=== PATIENT | male | born 1955 | race Caucasian/White ===

== ENCOUNTER → 2016-05-16 | Outpatient (CLI) | payer BC ==
[~2016-05-16] MED LIST: AMR2 PO; ASCO10003 PO; ASPCH81 PO; ASPI1TAB2 PO; CHOL100010 PO; CHOL1CAP57 PO; COEN100C11 PO; COQ10100 PO; CRAN200C PO; DEXL30CA5 PO; FLM4 PO; GLC/500 PO; GLIM1TAB2 PO; KRIL1000 PO; KRIL1CAP18 PO; LOSA1TAB PO; METF1TAB85 PO; METH1TAB5 PO; METO50TA16 PO; METO50TA7 PO; MISCCAP80 PO; MULT-506 PO; NIAC500T11 PO; NXM/40 PO; OMEG10007 PO; OXGN; PRAV40TA2 PO; PRVC/40 PO; PRVC20 PO; SITA50TA PO; SITA50TA3 PO; TAMS0.4C38 PO; [UNRECOGNIZED DRUG - OTHER] PO
== END | disposition home or self-care (01) ==
LOC: C.LAB 14:19
PROVIDERS: ATTEND Urology
DX: N39.0 Urinary tract infection, site not specified (principal)

== ENCOUNTER 2016-08-21 08:48 | Emergency (ER) | payer BC ==
[~2016-08-21] VITALS: Ht 185.4 cm; Wt 114.4 kg
[2016-08-21] VITALS (8 sets, daily range): BP systolic 119–175; BP diastolic 71–81; PULSE 53–77; TEMP 36.4–36.8; O2SAT 92–98; Ht 185.4 cm; Wt 114.4 kg
[~2016-08-21 08:48] MED LIST changes: -AMR2 PO; -ASCO10003 PO; -ASPI1TAB2 PO; -CHOL1CAP57 PO; -COEN100C11 PO; -CRAN200C PO; -GLC/500 PO; -KRIL1000 PO; -KRIL1CAP18 PO; -LOSA1TAB PO; -METF1TAB85 PO; -METH1TAB5 PO; -METO50TA16 PO; -MISCCAP80 PO; -NIAC500T11 PO; -NXM/40 PO; -PRVC/40 PO; -PRVC20 PO; -SITA50TA3 PO; -TAMS0.4C38 PO; -[UNRECOGNIZED DRUG - OTHER] PO
[2016-08-21] MEDS ORDERED: SODIUM CHLORIDE 0.9% 1000ML 250 ML IV STA (09:33)
[2016-08-21] MEDS ORDERED: TAMS0.4C38 PO (09:48)
[2016-08-21] MEDS ORDERED: LOSA1TAB PO (09:48)
[2016-08-21] MEDS ORDERED: PRVC20 PO (09:48)
[2016-08-21] MEDS ORDERED: [UNRECOGNIZED DRUG - OTHER] PO (09:48)
[2016-08-21] MEDS ORDERED: DEXL30CA5 PO (09:48)
[2016-08-21] MEDS ORDERED: KRIL1CAP18 PO (09:48)
[2016-08-21] MEDS ORDERED: ASCO10003 PO (09:48)
[2016-08-21] MEDS ORDERED: COEN100C11 PO (09:48)
[2016-08-21] MEDS ORDERED: SITA50TA3 PO (09:48)
[2016-08-21] MEDS ORDERED: GLC/500 PO (09:48)
[2016-08-21] MEDS ORDERED: PRVC/40 PO (09:48)
[2016-08-21] MEDS ORDERED: AMR2 PO (09:48)
[2016-08-21] MEDS ORDERED: CHOL1CAP57 PO (09:48)
[2016-08-21] MEDS ORDERED: METH-1305 PO (09:48)
[2016-08-21] MEDS ORDERED: NIAC500T11 PO (09:48)
[2016-08-21] MEDS ORDERED: CRAN200C PO (09:48)
[2016-08-21] MEDS ORDERED: ASPI1TAB2 PO (09:48)
[2016-08-21] MEDS ORDERED: OXGN (09:48)
[2016-08-21] MEDS ORDERED: METO50TA16 PO (09:48)
[2016-08-21 09:49] LABS: HEMATOCRIT 40.7 % (42-52); MEAN CELL VOLUME 88.5 fL (80-100); MEAN CORPUSCULAR HEMOGLOBIN 30.2 pg (25-34); MEAN CORPUSCULAR HGB CONC 34.2 g/dl (32-36); MEAN PLATELET VOLUME 10.2 fL (7.4-10.4); PLATELET COUNT 206 K/uL (130-400); WHITE BLOOD COUNT 6.98 K/uL (4.8-10.8)
[2016-08-21 09:57] LABS: PARTIAL THROMBOPLASTIN RATIO 1.1
[2016-08-21 09:58] LABS: CALCIUM 8.6 mg/dl (8.5-10.1)
[2016-08-21 10:01] LABS: ALT/SGPT 36 U/L (12-78); BLOOD UREA NITROGEN 9 mg/dl (7-18); BUN/CREATININE RATIO 11.6 (10-20); CARBON DIOXIDE 27 mmol/L (21-32); CHLORIDE 103 mmol/L (98-107); CREATININE 0.79 mg/dl (0.60-1.40); GLUCOSE 175 mg/dl (70-99); POTASSIUM 3.8 mmol/L (3.5-5.1); SODIUM 138 mmol/L (136-145)
[2016-08-21 10:05] LABS: ALB/GLOB RATIO 0.9 (0.9-2); ALKALINE PHOSPHATASE 54 U/L (45-117); AST/SGOT 37 U/L (15-37)
--- NOTE | 2016-08-21 10:08 | DIAGNOSTIC IMAGING REPORT ---
CHEST ONE VIEW PORTABLE HISTORY: Atypical CHEST PAIN COMPARISON: Chest 09/30/2010. FINDINGS: The lungs are clear. Cardiac silhouette is normal in size. No pleural effusions. No pneumothorax. IMPRESSION: No acute process. Electronically signed by: Anderson Knight M.D. 08/21/2016 10:06 AM Dictated Date/Time: 08/21/2016 10:05 AM
[2016-08-21] MEDS ORDERED: NITROGLYCERIN 0.4 MG SL PER TAB CHARGE SL PRN (11:00)
[2016-08-21] MEDS ORDERED: ZOLPIDEM TARTRATE 5 MG TAB PO PRN ×2 (11:00)
[2016-08-21] MEDS ORDERED: MoRPHine SULFATE 2 MG/ML CARP IV PRN (11:00)
[2016-08-21] MEDS ORDERED: POLYETHYLENE (MIRALAX) 17 GM PACK PO PRN (11:00)
[2016-08-21] MEDS ORDERED: MAGNESIUM HYDROXIDE SUSP 30 ML UDC PO PRN (11:00)
[2016-08-21] MEDS ORDERED: ACETAMINOPHEN 325 MG TAB PO PRN (11:00)
[2016-08-21] MEDS ORDERED: ONDANSETRON INJ 2 MG/ML 2 ML VIAL IV PRN (11:00)
[2016-08-21] MEDS ORDERED: ALUMINUM/MAGNESIUM/SIMETH (MAALOX MAX) 30 ML UDC PO PRN (11:00)
--- NOTE | 2016-08-21 11:35 | History and Physical ---
History & Physical Date & Time of Service: August 21, 2016 at 11:14 Chief Complaint: Cardiac Assessment Primary Care Physician: Kelly Mcclelland M.D. History of Present Illness Source: patient 60M with a PMHx of DM2 (oral agents), CAD (PTCA RCA 2000 after thrombolysis for acute inferior wall ME, LAD stent 2002), HTN, HLD, p/w intermittent chest tightness x 2 days starting after playing aquatic volleyball at the [facility]. After volleyball pt felt that his heart was went "out of rhythm". The day after volleyball at home he felt left sided chest pain which he described as dull pressure that radiated down his left arm. The pain would last up to 30 min. The dull pressure was not associated with activity or food and would occur at rest. Yesterday evening the dull pressure awoke him from sleep and today he decided to come to the ER. Pt states that he has had this dull pressure in the past, and it goes away on it's own and is not usually associated with activity. He sees Dr. Myers as outpatient, last visit in Dec 2015. Pt states that he has been worked up in the past for his feeling his heart was "out of rhythm". Chart review from [facility] shows that the pt had a Holter in 2013 which showed Ventricular Ectopy. Last echo was in 2013 showed the left ventricle is borderline dilated, normal LV wall thickness, EF of 50-55%. Basilar wall akinesis. No thrombus. Pt in the ER was asymptomatic. Pt didn't take any Nitro for his chest pain. Pt feels well. States he has a nonspecific symptoms of chronic nausea which may be related to heartburn but is not on any heartburn meds at present. ROS: No fevers. No syncope. No SOB, no diaphoresis. No swelling of his hands or feet. Pt uses oxygen at night to sleep. PSHx: Stents in 2000, 2002, Cholecystectomy. Allergies: see above Meds: Daily Aspirin, BB, Statin, ARB, Metformin, Januvia, Glipizide, ABx for UTI prophylaxis, Niacin. SHx:45 pack year history, has quit. Minimal alcohol. . Family History No pertinent family history Social History Smoking Status: Former Smoker Housing status: lives with family Immunizations History of Influenza Vaccine: Yes Influenza Vaccine Date: Jan 06, 2010 History of Tetanus Vaccine?: No History of Pneumococcal: Yes Pneumococcal Date: Jan 06, 2010 History of Hepatitis B Vaccine: No Multi-Drug Resistant Organisms History of MDRO: No Allergies Coded Allergies: Irbesartan (Verified Allergy, Unknown, `, 11/07/14) Latex1 -Allergic Contact Dermititis (Verified Allergy, Unknown, -, 11/07/14) Lisinopril (Verified Allergy, Unknown, `, 11/07/14) Olmesartan (Verified Allergy, Unknown, `, 09/30/10) Home Medications Scheduled Ascorbic Acid (Vitamin C), 1,000 MG PO BID Aspirin (Rachelle Aspirin Ec Low Dose), 1 TAB PO DAILY Cholecalciferol (Vitamin D3), 1,000 UNITS PO DAILY Coenzyme Q10 (Ubidecarenone) (Coq-10), 200 MG PO DAILY Cranberry (Vaccinium Macrocarp (Cranberry Extract), 504 MG PO BID Dexlansoprazole (Dexilant), 30 MG PO DAILY Glimepiride (Glimepiride), 2 MG PO BIDM Krill Oil ([place]-3 Krill Oil 500 mg), 750 MG PO DAILY Losartan Potassium (Cozaar), 25 MG PO DAILY Metformin Hcl (Metformin Hcl Er), 1 TAB PO BID Methenamine Hippurate (Methenamine Hippurate), 1 GM PO DAILY Metoprolol Tartrate (Lopressor) (Lopressor), 50 MG PO BID Niacin (Niacin), 500 MG PO DAILY Oxygen (Oxygen), 2 LITERS NA PRN Pravastatin Sod (Pravastatin Sodium), 20 MG PO DAILY Pravastatin Sod (Pravastatin Sodium), 40 MG PO DAILY Sitagliptin (Januvia), 50 MG PO DAILY Tamsulosin Hcl (Flomax), 0.4 MG PO DAILY [Hyperbiotics], PO DAILY Review of Systems Constitutional: No chills, No fever ENT: No sore throat, No tinnitus Respiratory: No cough, No sputum Physical Exam Vital Signs Date Time Temp Pulse Resp B/P Pulse Ox O2 Delivery O2 Flow Rate FiO2 08/21/16 10:05 92 16 118/79 92 Room Air 08/21/16 09:12 96 Room Air 08/21/16 09:10 67 08/21/16 09:09 92 Room Air 08/21/16 08:59 36.7 72 18 139/86 93 Room Air General Appearance: WD/WN, no apparent distress, + obese Head: normocephalic, atraumatic Eyes: PERRL Neck: supple, no adenopathy Respiratory/Chest: chest non-tender, lungs clear, no respiratory distress, no accessory muscle use, + decreased breath sounds Cardiovascular: regular rate, rhythm, no edema, no gallop, no JVD, no murmur, normal peripheral pulses Abdomen/GI: normal bowel sounds, non tender, soft, no pulsatile mass Back: normal inspection, no CVA tenderness, no muscle spasm Extremities/Musculoskelatal: normal inspection, no calf tenderness, normal capillary refill, no pedal edema, normal range of motion Neurologic/Psych: alert, normal mood/affect, oriented x 3 Skin: + pertinent finding (warts on fingers) Diagnostics Laboratory Results Results Past 24 Hours Test 08/21/16 09:10 Range/Units White Blood Count 6.98 4.8-10.8 K/uL Red Blood Count 4.60 4.7-6.1 M/uL Hemoglobin 13.9 14.0-18.0 g/dL Hematocrit 40.7 42-52 % Mean Corpuscular Volume 88.5 80-100 fL Mean Corpuscular Hemoglobin 30.2 25-34 pg Mean Corpuscular Hemoglobin Concent 34.2 32-36 g/dl RDW Standard Deviation 40.6 36.4-46.3 fL RDW Coefficient of Variation 12.7 11.5-14.5 % Platelet Count 206 130-400 K/uL Mean Platelet Volume 10.2 7.4-10.4 fL Prothrombin Time 11.0 9.0-12.0 SECONDS Prothromb Time International Ratio 1.0 0.9-1.1 Activated Partial Thromboplast Time 27.6 21.0-31.0 SECONDS Partial Thromboplastin Ratio 1.1 Sodium Level 138 136-145 mmol/L Potassium Level 3.8 3.5-5.1 mmol/L Chloride Level 103 98-107 mmol/L Carbon Dioxide Level 27 21-32 mmol/L Anion Gap 8.0 3-11 mmol/L Blood Urea Nitrogen 9 7-18 mg/dl Creatinine 0.79 0.60-1.40 mg/dl Est Creatinine Clear Calc Drug Dose 121.2 ml/min Estimated GFR () 112.3 Estimated GFR (Non- 96.9 BUN/Creatinine Ratio 11.6 10-20 Random Glucose 175 70-99 mg/dl Calcium Level 8.6 8.5-10.1 mg/dl Total Bilirubin 0.6 0.2-1 mg/dl Aspartate Amino Transf (AST/SGOT) 37 15-37 U/L Alanine Aminotransferase (ALT/SGPT) 36 12-78 U/L Alkaline Phosphatase 54 45-117 U/L Troponin I < 0.015 0-0.045 ng/ml Total Protein 7.5 6.4-8.2 gm/dl Albumin 3.6 3.4-5.0 gm/dl Globulin 3.9 2.5-4.0 gm/dl Albumin/Globulin Ratio 0.9 0.9-2 Lipase 149 73-393 U/L Diagnostic Radiology CHEST ONE VIEW PORTABLE HISTORY: Atypical CHEST PAIN COMPARISON: Chest 09/30/2010. FINDINGS: The lungs are clear. Cardiac silhouette is normal in size. No pleural effusions. No pneumothorax. IMPRESSION: No acute process. EKG Normal sinus rhythm Low voltage QRS Cannot rule out Anterior infarct , age undetermined Abnormal ECG When compared with ECG of 30-SEP-2010 12:22, No significant change was found Impression Assessment and Plan 60M with a PMHx of DM2 (oral m eds), previous cardiac stents (2002), ME with revascularization in 2000, h/o UTIs, HTN, HLD p/w a two day history of chest pressure after playing aqua volleyball. X-ray negative. EKG normal. Trops neg x 1. Because of pt's high cardiac risk factors he was admitted to [facility] for observation, will order exercise echo and Trops will be trended. Will start Ranitidine empirically. Echo 2013 (allscripts):Left ventricle borderline dilated. There is a false tendon located in the LV chamber, this is a normal variant. There is normal left ventricular wall thickness. EF = 50-55%. Grade 1 diastolic dysfunction ( abnormal relaxation pattern). There is basal inferior wall akinesis. No thrombus. Intermittent Chest Pressure x 2 days, Angina vs GERD - Pt is asymptomatic at present. VSS. - X-ray: Lungs clear, no pleural effusion, no pneumothorax. - EKG showed no changes. - Trops normal x 1 @ 9:10AM. - Will admit for observation on Tele, Trend Trops, EKG tomorrow AM, stress echo tomorrow. - c/w Aspirin 81mg QAM, continue with Lopressor 50mg BID, c/w Losartan 25mg daily, c/w Pravastatin 40mg daily. - Will add on Ranitidine 150mg daily to r/o GI cause. DM2 - HBA1C was approx 9 in 2014. Glucose was 175 today. - Will hold Metformin, Glimpiride, Januvia. - ISS for diabetes control - DM2 Diet. HTN - c/w Losartan 25mg daily. HLD - Will order Lipid Panel for tomorrow, if elevated, consider changing Pravastatin to Atorvastatin. - c/w Niacin 500mg daily. Diet: DM2 diet DVT Proph Hep SQ BID Dispo: Tele Observation, Full Code. Resident Physician Supervision Note: I interviewed and examined the patient. Discussed with Dr. Reyes and agree with findings and plan as documented in the note. Any exceptions or clarifications are listed here: None Documented By: Edison Gonzalez chest pain - like a throbbing, L upper chest but accompanied by nausea and L arm tingling at times. on and off at rest last ~24hrs. each episode ~30- 60mins spontaneous onset spontaneous resolution ros otherwise negative except for as above vitals noted nad breathing unlabored no pallor or icterus cardio distant but reg , lungs cta b/l no r/r/w good effort EKG nonacute, enzymes negative chest pain - duration of sx and negative EKG/enzymes reassuring, but with personal hx of CAD and significant ongoing risks - r/o ME, then stress echo if enzymes negative otherwise as above VTE Prophylaxis VTE Risk Assessment Done? Y/N: Yes Risk Level: Moderate Resident Involvement: Resident Care Provided Care Provided: Adult Hospital Medicine
--- NOTE | 2016-08-21 11:36 | EMERGENCY ROOM VISIT NOTE ---
History Report prepared by Holly: Brittny Miranda Under the Supervision of: Dr. Michele Llanos M.D. First contact with patient: 09:10 Chief Complaint: CARDIAC ASSESSMENT Stated Complaint: CARDIAC ASSESSMENT Nursing Triage Summary: Pt c/o left sided chest pain since Monday, associates nausea. Intermittent, pain woke him up last night. Tingling in left arm. Monday after water volleyball he started having rhythm changes. Hx 2 stents. History of Present Illness The patient is a 60 year old male who presents to the Emergency Room with complaints of intermittent chest pain starting two days ago. He states that he was doing water volleyball at the [facility] and felt like maybe he overexerted himself while playing. He states that he felt his heart "go out of rhythm." He reports that it came and went. The patient states that by the evening, the chest pains had started. He states that his symptoms came and went yesterday. He reports that last night he started to experience nausea, more chest pain, and trouble sleeping. He states that he decided since his symptoms were continuing to worsen that he was coming to the ED this morning. The patient states that when his pain was the worst last night it was a 7/10 in severity. He notes that the pain went into his left arm and into his back. He reports that the pain is dull and throbbing. He reports that the pain woke him up from his sleep last night and that it kept him up for half an hour before it eased. The patient denies taking any nitroglycerin, but reports taking aspirin daily. He complains of nausea. He denies diaphoresis and shortness of breath. He notes that he normally has oxygen at night. Source of History: patient Onset: two days ago Position: chest Symptom Intensity: 7/10 Quality: dull, other (throbbing) Timing: intermittent Associated Symptoms: + back pain, + nausea, No SOB, No diaphoresis Review of Systems See HPI for pertinent positives & negatives. A total of 10 systems reviewed and were otherwise negative. Past Medical & Surgical Medical Problems: (1) Chest pain (2) Heart attack Family History No pertinent family history Social History Smoking Status: Former Smoker Marital Status: Housing Status: lives with family Current/Historical Medications Scheduled Ascorbic Acid (Vitamin C), 1,000 MG PO BID Aspirin (Rachelle Aspirin Ec Low Dose), 1 TAB PO DAILY Cholecalciferol (Vitamin D3), 1,000 UNITS PO DAILY Coenzyme Q10 (Ubidecarenone) (Coq-10), 200 MG PO DAILY Cranberry (Vaccinium Macrocarp (Cranberry Extract), 504 MG PO BID Dexlansoprazole (Dexilant), 30 MG PO DAILY Glimepiride (Glimepiride), 2 MG PO BIDM Krill Oil ([place]-3 Krill Oil 500 mg), 750 MG PO DAILY Losartan Potassium (Cozaar), 25 MG PO DAILY Metformin Hcl (Metformin Hcl Er), 1 TAB PO BID Methenamine Hippurate (Methenamine Hippurate), 1 GM PO DAILY Metoprolol Tartrate (Lopressor) (Lopressor), 50 MG PO BID Niacin (Niacin), 500 MG PO DAILY Oxygen (Oxygen), 2 LITERS NA PRN Pravastatin Sod (Pravastatin Sodium), 20 MG PO DAILY Pravastatin Sod (Pravastatin Sodium), 40 MG PO DAILY Sitagliptin (Januvia), 50 MG PO DAILY Tamsulosin Hcl (Flomax), 0.4 MG PO DAILY [Hyperbiotics], PO DAILY Allergies Coded Allergies: Irbesartan (Verified Allergy, Unknown, `, 11/07/14) Latex1 -Allergic Contact Dermititis (Verified Allergy, Unknown, -, 11/07/14) Lisinopril (Verified Allergy, Unknown, `, 11/07/14) Olmesartan (Verified Allergy, Unknown, `, 09/30/10) Physical Exam Vital Signs Date Time Temp Pulse Resp B/P Pulse Ox O2 Delivery O2 Flow Rate FiO2 08/21/16 10:05 92 16 118/79 92 Room Air 08/21/16 09:12 96 Room Air 08/21/16 09:10 67 08/21/16 09:09 92 Room Air 08/21/16 08:59 36.7 72 18 139/86 93 Room Air Physical Exam GENERAL: Patient is in no acute distress. HEENT: No acute trauma, normocephalic atraumatic, mucous membranes moist, no nasal congestion, no scleral icterus. NECK: No stridor, no adenopathy, no meningismus, trachea is midline. LUNGS: Clear to auscultation bilaterally, no wheeze, no rhonchi, breath sounds equal. HEART: Without murmurs gallops or rubs, regular rate and rhythm. CHEST: Nontender chest wall. ABDOMEN: Soft, nontender, bowel sounds positive, no hernias, no peritonitis. EXTREMITIES: No cyanosis or edema, full range of motion of all the joints without pain or difficulty, no signs for acute trauma. NEUROLOGIC: Oriented x 3, no acute motor or sensory deficits, no focal weakness. SKIN: No rash, no jaundice, no diaphoresis. Medical Decision & Procedures ER Provider Diagnostic Interpretation: Radiology results as stated below per my review and radiologist interpretation: CHEST ONE VIEW PORTABLE HISTORY: Atypical CHEST PAIN COMPARISON: Chest 09/30/2010. FINDINGS: The lungs are clear. Cardiac silhouette is normal in size. No pleural effusions. No pneumothorax. IMPRESSION: No acute process. Electronically signed by: Anderson Knight M.D. 08/21/2016 10:06 AM Dictated Date/Time: 08/21/2016 10:05 AM Laboratory Results 08/21/16 09:10 08/21/16 09:10 Test 08/21/16 09:10 Red Blood Count 4.60 M/uL (4.7-6.1) Mean Corpuscular Volume 88.5 fL (80-100) Mean Corpuscular Hemoglobin 30.2 pg (25-34) Mean Corpuscular Hemoglobin Concent 34.2 g/dl (32-36) RDW Standard Deviation 40.6 fL (36.4-46.3) RDW Coefficient of Variation 12.7 % (11.5-14.5) Mean Platelet Volume 10.2 fL (7.4-10.4) Prothrombin Time 11.0 SECONDS (9.0-12.0) Prothromb Time International Ratio 1.0 (0.9-1.1) Activated Partial Thromboplast Time 27.6 SECONDS (21.0-31.0) Partial Thromboplastin Ratio 1.1 Anion Gap 8.0 mmol/L (3-11) Est Creatinine Clear Calc Drug Dose 121.2 ml/min Estimated GFR () 112.3 Estimated GFR (Non- 96.9 BUN/Creatinine Ratio 11.6 (10-20) Calcium Level 8.6 mg/dl (8.5-10.1) Total Bilirubin 0.6 mg/dl (0.2-1) Aspartate Amino Transf (AST/SGOT) 37 U/L (15-37) Alanine Aminotransferase (ALT/SGPT) 36 U/L (12-78) Alkaline Phosphatase 54 U/L (45-117) Troponin I < 0.015 ng/ml (0-0.045) Total Protein 7.5 gm/dl (6.4-8.2) Albumin 3.6 gm/dl (3.4-5.0) Globulin 3.9 gm/dl (2.5-4.0) Albumin/Globulin Ratio 0.9 (0.9-2) Lipase 149 U/L (73-393) Laboratory results reviewed by me. Medications Administered Medications (Trade) Dose Ordered Sig/Dilma Route Start Time Stop Time Status Last Admin Dose Admin Sodium Chloride (Nss 1000ml) 250 ml @ 999 mls/hr Q16M STAT IV 08/21/16 09:33 08/21/16 09:57 DC 08/21/16 09:43 999 MLS/HR ECG Indication: chest pain Rate (beats per minute): 67 Rhythm: normal sinus Findings: no acute ischemic change, no ectopy, other (old septal infarct) ED Course 0912: The patient was evaluated in room A3. A complete history and physical exam was performed. 0933: Ordered NSS 250 ml @ 999 mls/hr IV. 1028: Upon reexamination the patient is doing fine. I discussed results and treatment plan with the patient. He verbalizes agreement and understanding. The patient will be evaluated for further management. 1033: Discussed the patient's case Dr. Gonzalez. The patient will be evaluated for further management. Medical Decision Differential diagnoses include cardiac ischemia, electrolyte imbalance, pneumothorax, angina, musculoskeletal chest pain, OH There is no leukocytosis or concerning anemia. No significant electrolyte abnormality, kidney failure or hepatitis. There is no coagulopathy. Chest x- ray does not show mediastinal widening, pneumonia or pneumothorax. EKG shows a normal sinus rhythm with some old changes, no acute ischemia. Cardiac enzyme testing 1 is not consistent with acute cardiac injury. The patient presents with chest pain which sounds somewhat anginal in nature. He has a known cardiac history. Right now he is chest pain-free and resting comfortably. He already took aspirin today. The patient deserves a further cardiac workup. I spoke to the patient and case management. The on-call hospitalist was consulted. Consults Time Called: [phone] Consulting Physician: Dr. Gonzalez Returned Call: [phone] Discussed the patient's case Dr. Gonzalez. The patient will be evaluated for further management Impression Primary Impression: Precordial chest pain Scribe Attestation The scribe's documentation has been prepared under my direction and personally reviewed by me in its entirety. I confirm that the note above accurately reflects all work, treatment, procedures, and medical decision making performed by me. Departure Information Dispostion Being Evaluated By Hospitalist Referrals Kelly Mcclelland M.D. (PCP) Patient Instructions My [facility]
[2016-08-21] MEDS ORDERED: PHARMACY GLYCEMIC MGMT CONSULT PRN (12:03)
[2016-08-21] MEDS ORDERED: DEXTROSE 50% 50 ML SYR IV PRN (12:15)
[2016-08-21] MEDS ORDERED: GLUCOSE 10 TABS/TUBE PO PRN (12:15)
[2016-08-21] MEDS ORDERED: GLUCAGON FOR INJ 1 MG VIAL SQ PRN (12:15)
[2016-08-21] MEDS ORDERED: GLUCOSE 40% GEL 15 GM TUBE PO PRN (12:15)
--- NOTE | 2016-08-21 12:22 | Pharmacy Progress Note ---
Glycemic Control Intl Consult Date of Service August 21, 2016. Scope Glycemic Pharmacist consulted by Dr Reyes on 08/21 for glycemic control and to write orders per [facility] inpatient glycemic control protocol Objective Weight (Kilograms): 98.300 Accuchecks BSG (last 24hrs): Test 08/21/16 09:10 08/21/16 12:04 Random Glucose 175 mg/dl (70-99) Bedside Glucose 119 mg/dl (70-99) Laboratory Data (last 24hrs) Test 08/21/16 09:10 Anion Gap 8.0 mmol/L BUN/Creatinine Ratio 11.6 Blood Urea Nitrogen 9 mg/dl Creatinine 0.79 mg/dl Potassium Level 3.8 mmol/L Sodium Level 138 mmol/L White Blood Count 6.98 K/uL Recent Pertinent Medications Outpatient Anti-diabetic Regimen: * Amaryl 2 mg daily - need to confirm dose as it does not match Rx fill history * Metformin ER 500 mg BID * Januvia 50 mg daily * A1c = 9.2 % 11/17/14 Risk Factors for Insulin Resistance: * Diet: type 2 diabetes diet ordered Assessment & Plan ASSESSMENT: 08/21/16 * Patient is a type 2 diabetic admitted w/ chest pain, unknown control of diabetes as last A1c available is from 2014 * Pt is maintained on three oral antidiabetic agents as an outpatient * Oral agents are not recommended for inpatient use d/t drug interactions, changing PO intake, and difficulty titrating for acute hyper/hypoglycemia. ADA recommends re-initiating outpatient oral agents 1-2 days prior to discharge if/ when appropriate if they were held on admission. * Will hold oral agents for admission and utilize SQ basal bolus insulin regimen which is the recommended regimen for inpatient glycemic control. * Will initiate weight based insulin dosing for insulin jana patient and titrate based on BSG trends. * ADA & AACE recommend a goal blood sugar range 140-180 mg/dl for the majority of critically ill & non-critically ill patients. However, more stringent targets may be selected in individual cases. Will utilize more stringent goal of 110- 140 mg/dl based on patient age & comorbidities. Additionally, tighter glycemic control is warranted to facilitate wound/infection healing. PLAN FOR INPATIENT GLYCEMIC CONTROL: * Holding outpatient oral diabetes medications * Basal insulin with LANTUS 0, 5 or 9 units SQ BID, depending on BSG * Correctional Insulin with NOVOLOG per scale ACHS or Q6hrs while NPO * Goal Range: Low 110 mg/dL - High 140 mg/dL * Correction Factor: 25 mg/dL/unit * Nutritional / Prandial insulin per carb ratio of 1 unit per 10 grams CHO consumed * A1c w/ AM labs * Please note that the plan above was derived based on current level of insulin resistance and hospital stress. These recommendations are appropriate for inpatient admission only. Plan of care upon discharge will need to be reassessed to avoid potential outpatient hypo/hyperglycemia. Thank you.
[2016-08-21] MEDS ORDERED: RANITIDINE HCL 150 MG TAB PO ONE (13:30)
[2016-08-21] MEDS ORDERED: METF1TAB85 PO (13:43)
[2016-08-21] MEDS ORDERED: IV FLUIDS COMPLETED PRN (14:00)
[2016-08-21] MEDS: INSULIN ASPART 100 UNITS/ML 3 ML PEN SC SCH ×2 (17:33→20:48)
[2016-08-21] MEDS: INSULIN GLARGINE SOLOSTAR 100 UNITS/ML 3 ML PEN SC SCH (20:48)
[2016-08-21] MEDS: HEPARIN SOD 5000 UNIT/0.5 ML CARP SQ SCH (20:50)
[2016-08-21 23:52] LABS: CKMB/CK RATIO 1.3 (0-3.0)
[2016-08-22] VITALS (8 sets, daily range): BP systolic 109–125; BP diastolic 66–79; PULSE 50–54; TEMP 36.4–36.8; O2SAT 92–97
[2016-08-22 05:55] LABS: HEMATOCRIT 40.5 % (42-52); MEAN CELL VOLUME 89.6 fL (80-100); MEAN CORPUSCULAR HEMOGLOBIN 30.1 pg (25-34); MEAN CORPUSCULAR HGB CONC 33.6 g/dl (32-36); MEAN PLATELET VOLUME 9.9 fL (7.4-10.4); PLATELET COUNT 185 K/uL (130-400); RED BLOOD COUNT 4.52 M/uL (4.7-6.1); WHITE BLOOD COUNT 6.16 K/uL (4.8-10.8)
[2016-08-22 06:21] LABS: CALCIUM 8.9 mg/dl (8.5-10.1)
[2016-08-22 06:36] LABS: BUN/CREATININE RATIO 11.8 (10-20); CHOLESTEROL/HDL RATIO 4.4; CREATININE 0.81 mg/dl (0.60-1.40)
--- NOTE | 2016-08-22 07:14 | Family Medicine Progress Note ---
Progress Note Date of Service August 22, 2016. Subjective Pt evaluation today including: conversation w/ patient, physical exam, chart review, lab review The patient was seen and examined at bedside. No acute overnight events. Telemetry monitoring showed sinus rhythm with periodic bigeminal beats. Pt continues to have intermittent chest pressure . Pt recently switched his PPIs from Dexilant to Omeprazole. Also, pt's BB med rec was actually 25mg QAM and 50mg QHS of Metoprolol and not 50mg BID. Patient is resting comfortably in bed. Denies having any pain. Eating and urinating well. Scheduled for an exercise stress test today. Troponins negative x 3. Plan of care was described to the patient and all questions were answered. Constitutional: No chills, No fever, No sweats, No weight loss ENT: No hearing loss Respiratory: No cough, No sputum Cardiovascular: No chest pain Breast: No breast lump Abdomen: No nausea, No pain Musculoskeletal: No joint pain Male : No dysuria Psychiatric: No depression symptoms Objective Physical Exam General Appearance: WD/WN, no apparent distress, + obese Respiratory/Chest: chest non-tender, lungs clear, normal breath sounds, no respiratory distress, no accessory muscle use Cardiovascular: regular rate, rhythm, no edema, no gallop, no JVD, no murmur Abdomen: normal bowel sounds, non tender, soft, no organomegaly, no pulsatile mass Extremities: normal range of motion, non-tender, normal inspection, no pedal edema, no calf tenderness Neurologic/Psychiatric: no motor/sensory deficits, alert, oriented x 3 Skin: no rash Assessment and Plan 60M with a PMHx of DM2 (oral meds), previous cardiac stents (2002), [place] with revascularization in 2000, h/o UTIs, HTN, HLD p/w a two day history of chest pressure after playing aqua volleyball. X-ray negative. EKG normal. Trops neg x 1. Because of pt's high cardiac risk factors he was admitted to [facility] for observation, will order exercise echo and Trops will be trended. Will start Ranitidine empirically. Echo 2013 (allscripts):Left ventricle borderline dilated. There is a false tendon located in the LV chamber, this is a normal variant. There is normal left ventricular wall thickness. EF = 50-55%. Grade 1 diastolic dysfunction ( abnormal relaxation pattern). There is basal inferior wall akinesis. No thrombus. Exercise Echo Today: * -- Conclusions -- * The left ventricle is mildly dilated. * There is borderline asymmetric left ventricular hypertrophy. * Left ventricular systolic function is normal. * Grade I diastolic dysfunction, (abnormal relaxation pattern). * The right ventricular systolic function is normal as assessed by tricuspid annular plane systolic excursion (TAPSE) (normal >1.5 cm). * Normal maximal stress echocardiogram without inducible ischemia. * Increased PVcs with exercise EKG: Sinus bradycardia Low voltage QRS Poor R-wave progression: anterior AK vs. lead placement vs. LVH Borderline ECG Intermittent Chest Pressure x 2 days, Angina vs GERD - Pt is asymptomatic at present. VSS. - X-ray: Lungs clear, no pleural effusion, no pneumothorax. - Repeat EKG today showed no changes. - Trops normal x 3 - c/w Aspirin 81mg QAM, continue with Lopressor 50mg BID, c/w Losartan 25mg daily, c/w Pravastatin 40mg daily. - Will add on Ranitidine 150mg daily to r/o GI cause. DM2 - HBA1C was 9.2 in 2014. Glucose was 175 today. HBA1C measured yesterday was 7.5. - Will hold oral glucose meds. - ISS for diabetes control - DM2 Diet. HTN - c/w Losartan 25mg daily. HLD - c/w Pravastatin. - c/w Niacin 500mg daily. Diet: DM2 diet DVT Proph Hep SQ BID Dispo: Tele Observation, Full Code. Resident Involvement: Resident Care Provided Care Provided: Adult [facility] Assessment/Plan Resident Physician Supervision Note: I was present with Dr. Reyes during the history and exam. I discussed the case with the resident and agree with the findings and plan as documented in the note. Any exceptions or clarifications are listed here. For full attending assessment and attestation, see discharge note from same date.
[2016-08-22 07:24] LABS: ESTIMATED AVERAGE GLUCOSE 169 mg/dl; HA1C FLAG Normal (Normal)
[2016-08-22] MEDS: INSULIN ASPART 100 UNITS/ML 3 ML PEN SC SCH ×2 (08:10→12:00)
[2016-08-22] MEDS: INSULIN GLARGINE SOLOSTAR 100 UNITS/ML 3 ML PEN SC SCH (08:10)
[2016-08-22] MEDS: HEPARIN SOD 5000 UNIT/0.5 ML CARP SQ SCH (08:11)
[2016-08-22] MEDS ORDERED: METHENAMINE HIPPURATE 1 GM TAB PO SCH (09:00)
[2016-08-22] MEDS ORDERED: RANITIDINE HCL 150 MG TAB PO SCH (09:00)
[2016-08-22] MEDS ORDERED: NIACIN 500 MG TAB IMMEDIATE RELEASE PO SCH (09:00)
[2016-08-22] MEDS ORDERED: LOSARTAN POTASSIUM 25 MG TAB PO SCH (09:00)
[2016-08-22] MEDS ORDERED: TAMSULOSIN HCL 0.4 MG CAP PO SCH (09:00)
[2016-08-22] MEDS ORDERED: ASPIRIN 81 MG ECTAB PO SCH (09:00)
[2016-08-22] MEDS ORDERED: METOPROLOL TARTRATE 50 MG TAB PO SCH (09:00)
[2016-08-22] MEDS ORDERED: PRAVASTATIN SOD 40 MG TAB PO SCH (09:00)
--- NOTE | 2016-08-22 10:20 | EXERCISE STRESS ECHO ---
*NOTICE TO RECEIVING [employer] This information is strictly Confidential and protected under [place] law. [place] law prohibits you from making any further disclosure of this information unless further disclosure is expressly permitted by the written consent of the person to whom it pertains or is authorized by law. A general authorization for the release of medical or other information is not sufficient for this purpose. Hospital accepts no responsibility if the information is made available to any other person, INCLUDING THE PATIENT. Interpretation Summary * Name: JENNIFER GUTIERREZ Study Date: 08/22/2016 08:41 AM BP: 128/73 mmHg * Patient Location: [facility]\S\N276\S\1 HR: 72 * : 1955 (M/d/yyyy) Gender: Male Height: 73 in * Age: 60 yrs Ethnicity: [place] Weight: 216 lb * Ordering Physician: Ronny Reyes * Performed By: Saima Tang * * Reason For Study: CHEST PAIN * BSA: 2.2 m2 * -- Conclusions -- * The left ventricle is mildly dilated. * There is borderline asymmetric left ventricular hypertrophy. * Left ventricular systolic function is normal. * Grade I diastolic dysfunction, (abnormal relaxation pattern). * The right ventricular systolic function is normal as assessed by tricuspid annular plane systolic excursion (TAPSE) (normal >1.5 cm). * Normal maximal stress echocardiogram without inducible ischemia. * Increased PVcs with exercise Procedure Details * ECHOEX, CPT #[id number] * ECHO DOPPLER, CPT #[id number] * ECHO COLOR FLOW, CPT #[id number] * A contrast injection of Definity was performed to improve assessment of LV function. * Contrast was injected into an intravenous site in the left arm. * One vial of Definity ultrasound contrast was diluted in normal saline to a total volume of 10 ml. A total of '5.5' ml of solution was administered during imaging. * Lot # [id number] of Definity utilized for procedure. * Expiration date 07/19. * The attending nurse who injected the contrast agent was TORO WILDE RN. Left Ventricular Findings with Stress * Normal maximal stress echocardiogram without inducible ischemia. Increased PVcs with exercise Left Ventricle * The left ventricle is mildly dilated. * There is borderline asymmetric left ventricular hypertrophy. * Ejection Fraction = 65-70%. * Left ventricular systolic function is normal. * Grade I diastolic dysfunction, (abnormal relaxation pattern). * The left ventricular wall motion is normal. Right Ventricle * The right ventricle is grossly normal size. * The right ventricular systolic function is normal as assessed by tricuspid annular plane systolic excursion (TAPSE) (normal >1.5 cm). Atria * The left atrial size is normal. * Right atrial size is normal. Mitral Valve * The mitral valve is grossly normal. * Significant mitral regurgitation is absent. Tricuspid Valve * The tricuspid valve anatomy is normal. * Significant tricuspid regurgitation is absent. Aortic Valve * The aortic valve is not well visualized. * No hemodynamically significant valvular aortic stenosis. * There is no significant aortic regurgitation. Pericardium * There is no pericardial effusion. Stress Parameters * The stress portion of this study was personally supervised by the undersigned interpreting physician. * Rest heart rate was '72' BPM. * Rest blood pressure was '128/73' * Maximum heart rate achieved was 144 bpm. * Maximum heart rate was 90 % of maximum age-predicted heart rate. * Maximum blood pressure was '187/76' * Total exercise time was '6:13' * Maximum exercise MET level achieved was '7.30' METS * Maximum treadmill speed was '3.40' miles per hour. * Maximum treadmill elevation was '14.00'% grade. * Exercise was terminated due to 'DYSPNEA' * The patient exhibited dyspnea during exercise. * Normal blood pressure response to exercise. * Target heart rate achieved. Left Ventricular Findings with Stress * Baseline EKG was normal with occasional PVCs No ST segement changes with exercise, but there was an increased frequency of PVCs Baseline echocardiogram was normal Normal augmentation with exercise and no inducible wall motion abnormalities Patient had dyspnea Normal HR and BP response to exercise. [place] treadmill score: 6 (low risk) MMode 2D Measurements and Calculations IVSd 1.2 cm IVSs 1.5 cm LVIDd 5.6 cm LVIDs 3.5 cm LVPWd 0.92 cm LVPWs 1.7 cm IVS/LVPW 1.3 FS 37.0 % EDV(Teich) 155.1 ml ESV(Teich) 52.3 ml EF(Teich) 66.3 % EDV(cubed) 177.7 ml ESV(cubed) 44.3 ml EF(cubed) 75.0 % % IVS thick 30.6 % % LVPW thick 87.7 % LV mass(C)d 235.2 grams LV mass(C)dI 105.8 grams/m\S\2 LV mass(C)s 225.6 grams LV mass(C)sI 101.5 grams/m\S\2 CO(Teich) 6.8 l/min CI(Teich) 3.1 l/min/m\S\2 SV(Teich) 102.8 ml SI(Teich) 46.2 ml/m\S\2 CO(cubed) 8.8 l/min CI(cubed) 4.0 l/min/m\S\2 SV(cubed) 133.4 ml SI(cubed) 60.0 ml/m\S\2 ACS 1.8 cm LA dimension 3.9 cm asc Aorta Diam 3.2 cm LVOT diam 2.2 cm LVOT area 3.8 cm\S\2 LVAd ap4 34.7 cm\S\2 LVLd ap4 8.5 cm EDV(MOD-sp4) 121.0 ml LVAs ap4 18.4 cm\S\2 LVLs ap4 7.2 cm ESV(MOD-sp4) 41.0 ml EF(MOD-sp4) 66.1 % LVAd ap2 30.3 cm\S\2 LVLd ap2 7.9 cm EDV(MOD-sp2) 98.0 ml LVAs ap2 16.0 cm\S\2 LVLs ap2 6.5 cm ESV(MOD-sp2) 34.0 ml EF(MOD-sp2) 65.3 % CO(MOD-sp4) 5.3 l/min CI(MOD-sp4) 2.4 l/min/m\S\2 SV(MOD-sp4) 80.0 ml SI(MOD-sp4) 36.0 ml/m\S\2 CO(MOD-sp2) 4.2 l/min CI(MOD-sp2) 1.9 l/min/m\S\2 SV(MOD-sp2) 64.0 ml SI(MOD-sp2) 28.8 ml/m\S\2 Doppler Measurements and Calculations MV E max michelle 80.0 cm/sec MV A max michelle 96.7 cm/sec MV E/A 0.83 MV dec time 0.27 sec Ao V2 max 183.3 cm/sec Ao max PG 13.4 mmHg Ao max PG (full) 7.8 mmHg YENNIFER(V,A) 2.5 cm\S\2 YENNIFER(V,D) 2.5 cm\S\2 LV V1 max PG 5.7 mmHg LV V1 max 119.0 cm/sec PA V2 max 76.5 cm/sec PA max PG 2.3 mmHg
--- NOTE | 2016-08-22 13:17 | Pharmacy Progress Note ---
Glycemic Control: Progress Nt Date of Service August 22, 2016. Scope Glycemic Pharmacist consulted by Dr Reyes on 08/21/2016 for glycemic control and to write orders per [facility] inpatient glycemic control protocol. Objective Accuchecks BSG (last 24hrs): Test 08/21/16 16:22 08/21/16 20:05 08/22/16 05:30 08/22/16 07:14 Bedside Glucose 113 mg/dl (70-99) 92 mg/dl (70-99) 137 mg/dl (70-99) Random Glucose 134 mg/dl (70-99) Test 08/22/16 11:11 Bedside Glucose 129 mg/dl (70-99) Laboratory Data (last 24hrs) Test 08/22/16 05:30 Anion Gap 8.0 mmol/L BUN/Creatinine Ratio 11.8 Blood Urea Nitrogen 10 mg/dl Creatinine 0.81 mg/dl Hemoglobin A1c 7.5 % Potassium Level 4.0 mmol/L Sodium Level 143 mmol/L White Blood Count 6.16 K/uL HbA1c: Test 08/22/16 05:30 Hemoglobin A1c 7.5 % (4.5-5.6) H Recent Pertinent Medications Outpatient Anti-diabetic Regimen: * Amaryl 2 mg po BID and metformin ER 500 mg PO BID and Januvia 50 mg PO daily The patient is currently receiving: * Basal insulin: Lantus 0-9 units every 24 hours (according to scale ) * Correctional Insulin: Novolog Correction per scale ACHS Goal Range: Low 110 mg/dL - High 140 mg/dL Correction Factor: 25 mg/dL/unit * Prandial insulin: Per carb ratio of 1 unit per 10 grams CHO consumed Risk Factors for Insulin Resistance: * Diet: type 2 diabetic diet Assessment & Plan ASSESSMENT: * ADA & AACE recommend a goal blood sugar range 140-180 mg/dl for the majority of critically ill & non-critically ill patients. However, more stringent targets may be selected in individual cases. Will utilize more stringent goal of 110-140mg/dl based on patient age & comorbidities. Additionally, tighter glycemic control is warranted to facilitate wound/infection healing. * Mr Woods was admitted on 08/21/16 for chest pain. He underwent a stress echo today and received Difinity contrast. Patient required 3 units of insulin yesterday and no Lantus. * Today, patient's blood sugars are 137 mg/dL and 129 mg/dL. I discontinued the Lantus order as the patient's blood sugars are well controlled by correctional insulin. Will continue the same regimen. Restart oral medications approximately 2 days after Difinity. PLAN FOR INPATIENT GLYCEMIC CONTROL: * Continuing correction factor of 25 mg/dl/unit * Continuing carb ratio of 1 unit per 10 grams CHO consumed * Continuing goal range to Low 110 mg/dL - High 140 mg/dL RECOMMENDATIONS FOR DISCHARGE: * Patient appears to have improved glycemic control on three oral agents. Could achieve greater glycemic control by maximizing oral agents. Would recommend following up as an outpatient in this regard. Caution is warranted in using glimepiride in the elderly due to risk of hypoglycemia. * Please note that the plan above was derived based on current level of insulin resistance and hospital stress. These recommendations are appropriate for inpatient admission only. Plan of care upon discharge will need to be reassessed to avoid potential outpatient hypo/hyperglycemia. Thank you.
--- NOTE | 2016-08-22 13:39 | Discharge Instructions ---
Discharge Instructions Date of Service August 22, 2016. Admission Reason for Admission: Chest Pain Discharge Discharge Diagnosis / Problem: Chest Pain of Uknown Origin Discharge Goals Goal(s): Decrease discomfort, Improve function, Increase independence, Learn about illness Activity Recommendations Activity Limitations: resume your previous activity . Instructions / Follow-Up Instructions / Follow-Up Please follow up with your primary care provider within one week. Your primary care provider may wish to address your sugar management. Your HBA1C in the hospital was measured at 7.5. This is a significant improvement from 9.2 that was measured in November 2014. Please follow up with your Die Reamer within two weeks of discharge. You may resume your regular home medications at their specified dose. As per our conversation today you were taking 25mg and 50mg of Metoprolol each day at Dr. Myers's advice. You may resume this dose. You may also continue to take Omeprazole for heartburn instead of your Dexilant. Return to the ER if you experience a worsening of your symptoms, unremitting chest pain or shortness of breath. Current Hospital Diet Patient's current hospital diet: Diabetes Type 2 Diet Discharge Diet Recommended Diet: Diabetes Type 2 Diet Pending Studies Studies pending at discharge: no Laboratory Results Hemoglobin A1c Test 08/22/16 05:30 Range/Units Estimated Average Glucose 169 mg/dl Hemoglobin A1c 7.5 H 4.5-5.6 % Lipid Panel Test 08/22/16 05:30 Range/Units Triglycerides Level 241 H 0-150 mg/dl Cholesterol Level 145 0-200 mg/dl HDL Cholesterol 33 mg/dl Cholesterol/HDL Ratio 4.4 LDL Cholesterol, Calculated 64 mg/dl Medical Emergencies . Who to Call and When: Medical Emergencies: If at any time you feel your situation is an emergency, please call 911 immediately. . Non-Emergent Contact Non-Emergency issues call your: Primary Care Provider, Die Reamer . . "Provider Documentation" section prepared by Ronny Reyes. . VTE Core Measure Inpt VTE Proph given/why not?: Unfractionated heparin SQ Resident Involvement: Resident Care Provided Care Provided: Adult Hospital Medicine
--- NOTE | 2016-08-22 13:50 | Discharge Summary ---
Discharge Summary Date of Service August 22, 2016. (Ronny Reyes M.D.) Discharge Summary Admission Date: August 21, 2016 at 10:58 Discharge Date: August 22, 2016 Discharge Disposition: Home Principal Diagnosis: Chest Pain of Unknown Origin Immunizations: Have You Had Influenza Vaccine: Yes Influenza Vaccine Date: Jan 06, 2010 History of Tetanus Vaccine?: No History of Pneumococcal: Yes Pneumococcal Date: Jan 06, 2010 History of Hepatitis B Vaccine: No (Ronny Reyes M.D.) Medication Reconciliation Continued Medications: Ascorbic Acid (Vitamin C) 1,000 Mg Tab 1000 MG PO BID Aspirin (Rachelle Aspirin Ec Low Dose) 81 Mg Tab 1 TAB PO DAILY Cholecalciferol (Vitamin D3) 1,000 Unit Cap 1000 UNITS PO DAILY Coenzyme Q10 (Ubidecarenone) (Coq-10) 100 Mg Cap 200 MG PO DAILY Cranberry (Vaccinium Macrocarp (Cranberry Extract) 200 Mg Cap 504 MG PO BID Dexlansoprazole (Dexilant) 30 Mg Cap 30 MG PO DAILY Glimepiride (Glimepiride) 2 Mg Tab 2 MG PO BIDM Krill Oil (Megared Melvin-3 Krill Oil 500 mg) 1 Cap Cap 750 MG PO DAILY Losartan Potassium (Cozaar) 25 Mg Tab 25 MG PO DAILY Metformin Hcl (Metformin Hcl Er) 500 Mg Tab 1 TAB PO BID for 90 Days, #180 TAB 3 Refills Metoprolol Tartrate (Lopressor) (Lopressor) 50 Mg Tab 50 MG PO BID, #180 Niacin (Niacin) 500 Mg Tab 500 MG PO DAILY Oxygen (Oxygen) Gas 2 LITERS NA PRN Pravastatin Sod (Pravastatin Sodium) 40 Mg Tab 40 MG PO DAILY Sitagliptin (Januvia) 50 Mg Tab 50 MG PO DAILY Tamsulosin Hcl (Flomax) 0.4 Mg Cap 0.4 MG PO DAILY [Hyperbiotics] () PO DAILY 5 BILLION CFU (15 STRAINS) DAILY. Discontinued Medications: Methenamine Hippurate (Methenamine Hippurate) 1 Gm Tab 1 GM PO DAILY Pravastatin Sod (Pravastatin Sodium) 20 Mg Tab 20 MG PO DAILY Discharge Exam Subjective The patient was seen and examined at bedside. No acute overnight events. Telemetry monitoring showed sinus rhythm with periodic bigeminal beats. Pt continues to have intermittent chest pressure . Pt recently switched his PPIs from Dexilant to Omeprazole. Also, pt's BB med rec was actually 25mg QAM and 50mg QHS of Metoprolol and not 50mg BID. Patient is resting comfortably in bed. Denies having any pain. Eating and urinating well. Scheduled for an exercise stress test today. Troponins negative x 3. Plan of care was described to the patient and all questions were answered. Constitutional: No chills, No fever, No sweats, No weight loss ENT: No hearing loss Respiratory: No cough, No sputum Cardiovascular: No chest pain Breast: No breast lump Abdomen: No nausea, No pain Musculoskeletal: No joint pain Male : No dysuria Psychiatric: No depression symptoms Physical Exam General Appearance: WD/WN, no apparent distress, + obese Respiratory/Chest: chest non-tender, lungs clear, normal breath sounds, no respiratory distress, no accessory muscle use Cardiovascular: regular rate, rhythm, no edema, no gallop, no JVD, no murmur Abdomen: normal bowel sounds, non tender, soft, no organomegaly, no pulsatile mass Extremities: normal range of motion, non-tender, normal inspection, no pedal edema, no calf tenderness Neurologic/Psychiatric: no motor/sensory deficits, alert, oriented x 3 Skin: no rash (Ronny Reyes M.D.) Hospital Course 60M with a PMHx of DM2 (oral meds), previous cardiac stents (2002), [place] with revascularization in 2000, h/o UTIs, HTN, HLD p/w a two day history of chest pressure after playing aqua volleyball. X-ray negative. EKG normal. Trops neg x 3. Because of pt's high cardiac risk factors he was admitted to [facility] for observation. Stress echo and telemetry monitoring x 24 hours were normal. Pt continued to have chest pressure like symptoms, most likely GI related or MSK. Exercise Echo Today: * -- Conclusions -- * The left ventricle is mildly dilated. * There is borderline asymmetric left ventricular hypertrophy. * Left ventricular systolic function is normal. * Grade I diastolic dysfunction, (abnormal relaxation pattern). * The right ventricular systolic function is normal as assessed by tricuspid annular plane systolic excursion (TAPSE) (normal >1.5 cm). * Normal maximal stress echocardiogram without inducible ischemia. * Increased PVcs with exercise EKG: Sinus bradycardia Low voltage QRS Poor R-wave progression: anterior MA vs. lead placement vs. LVH Borderline ECG Pt was advised to continue his home medications and follow up with his PCP (Dr. Mcclelland or Dr. Reyes) and his food supervisor (Dr. Myers) within 1-2 weeks. DM2- HBA1C measured as 7.5. HTN - c/w Losartan 25mg daily. HLD - Consider changing Pravastatin 40mg to Atorvastatin 20mg or 40mg. Diet: DM2 diet DVT Proph- Hep SQ BID Dispo: Tele Observation, Full Code. Total Time Spent: Greater than 30 minutes This includes examination of the patient, discharge planning, medication reconciliation, and communication with other providers. (Ronny Reyes M.D.) Discharge Instructions Please refer to the electronic Patient Visit Report (Discharge Instructions) for additional information. (Ronny Reyes M.D.) Additional Copies To Anant Myers M.D.; Kelly Mcclelland M.D. Resident Involvement: Resident Care Provided Care Provided: [facility] (Ronny Reyes M.D.) History Resident Physician Supervision Note: I was present with Dr. Reyes during the history and exam. I discussed the case with the resident and agree with the findings and plan as documented in the note. Any exceptions or clarifications are listed here. Pt resting in chair at bedside. Resolution of chest discomfort overnight. Intermittent 'beat skipping' sensation with less frequency, no apparent complaint of same during stress testing. Reports no SOB, cough, lightheadedness, vision changes, DENNIS. (Darwin Ang MD) General Appearance: WD/WN, no apparent distress Respiratory: chest non-tender, lungs clear, normal breath sounds, no respiratory distress Cardiovascular: normal peripheral pulses, regular rate, rhythm, no edema, no murmur (Darwin Ang MD) Assessment/Plan 60 y/o male w/ h/o MA w/ revascularization and stenting, HTN, HLD, DMII presented w/ chest pain Chest pain - echo and EKG as noted - onset of sx follows w/ transition of Dexilant to omeprazole as well as physical activity, improved w/ addition of H2 leida. DMII - A1c 7.5, continue outpatient regimen HTN - continue losartan HLD - continue statin therapy (Darwin Ang MD)
[2016-09-16] MEDS ORDERED: MISCCAP80 PO (13:45)
[2016-09-16] MEDS ORDERED: KRIL1000 PO (13:45)
[2016-09-16] MEDS ORDERED: METH-1305 PO (13:45)
[2016-09-16] MEDS ORDERED: NXM/40 PO (13:45)
== END 2016-08-22 14:30 | disposition home or self-care (01) ==
LOC: ENRESERVTM → ENRESERVDT → C.EDB 08:50 → C.MED 10:58
PROVIDERS: ADMIT Family Medicine; ATTEND Family Medicine
DX: R07.9 Chest pain, unspecified (principal); E11.9 Type 2 diabetes mellitus without complications; I25.10 Atherosclerotic heart disease of native coronary artery without angina pectoris; I10 Essential (primary) hypertension; I25.2 Old myocardial infarction; E78.5 Hyperlipidemia, unspecified; Z79.82 Long term (current) use of aspirin; Z79.899 Other long term (current) drug therapy; Z91.040 Latex allergy status; Z87.891 Personal history of nicotine dependence

== ENCOUNTER → 2016-09-28 | Day surgery (SDC) | payer BC ==
[2016-09-16 13:46] VITALS: BMI 33.0
[~2016-09-28] VITALS: Ht 185.4 cm; Wt 113.6 kg
[~2016-09-28] MED LIST changes: +AMR2 PO; +ASCO10003 PO; -ASPCH81 PO; +ASPI1TAB2 PO; -CHOL100010 PO; +CHOL1CAP57 PO; +COEN100C11 PO; -COQ10100 PO; +CRAN200C PO; -DEXL30CA5 PO; -FLM4 PO; -GLIM1TAB2 PO; +KRIL1000 PO; +LIDOCAINE HCL 2% 2 ML VIAL (20MG/ML) ONE; +LOSA1TAB PO; +METF1TAB85 PO; +METH-1305 PO; +METO50TA16 PO; -METO50TA7 PO; +MISCCAP80 PO; -MULT-506 PO; +NIAC500T11 PO; +NXM/40 PO; -OMEG10007 PO; -PRAV40TA2 PO; +PROPOFOL IV EMULSION 10 MG/ML 20 ML VIAL IV ONE; +PRVC/40 PO; -SITA50TA PO; +SITA50TA3 PO; +SODIUM CHLORIDE 0.9% 500ML 500 ML IV ONE; +TAMS0.4C38 PO
[2016-09-28 08:41] VITALS: Ht 185.4 cm; Wt 113.6 kg
[2016-09-28 08:47] VITALS: TEMP 37
--- NOTE | 2016-09-28 09:23 | Endo History and Physical ---
History & Physical Date of Service: Sep 28, 2016. Chief Complaint: chest pain gerd Referring Physician: dr. hutchison History of Present Illness 60 yo CM who presents for EGD secondary to chest pain and GERD. Past Medical History Diabetes, Angioplasty/Stent, Male Genitourinary Prob., Reflux, High Cholesterol , Heart Disease, Hypertension, Liver Disease, Other, [place] Past Surgical History Hx Cardiac Surgery: Yes (HEART CATH X 2-2 STENTS PLACED) Hx Internal Defibrillator: No Hx Pacemaker: No Hx Abdominal Surgery: Yes (CARON) Hx of Implantable Prosthesis: No Hx Post-Op Nausea and Vomiting: No Hx Cancer Surgery: No Hx Thoracic Surgery: No Hx Orthopedic: No Hx Urinary Tract Surgery: No Family History None Social History Smoking Status: Former Smoker Hx Substance Use: No Hx Alcohol Use: Yes (RARELY) Allergies Coded Allergies: Irbesartan (Verified Allergy, Unknown, ? UNSURE, 09/16/16) Latex1 -Allergic Contact Dermititis (Verified Allergy, Unknown, RASH, 09/16) Lisinopril (Verified Allergy, Unknown, RASH, 09/16/16) Olmesartan (Verified Allergy, Unknown, ? REMEMBER, 09/16/16) Current Medications Reported Home Medications Medications Dose Route/Sig Max Daily Dose Days Date Category Dose Instructions Methenamine Hippurate 1 Gm Tab 1 Tab PO QPM 09/16/16 Reported Probiotic (Probiotic Product) 1 Cap Cap 1 Cap PO QAM 09/16/16 Reported Krill Oil 1 Cap Cap 1 Cap PO QAM 09/16/16 Reported Nexium (Esomeprazole Magnesium) 40 Mg Cap 40 Mg PO QAM 09/16/16 Reported Metformin Hcl Er (Metformin Hcl) 500 Mg Tab 1 Tab PO BID 90 08/21/16 Reported Oxygen Gas 2 Liters NA PRN 08/21/16 Reported Flomax (Tamsulosin Hcl) 0.4 Mg Cap 0.4 Mg PO HS 08/21/16 Reported Pravastatin Sodium (Pravastatin Sod) 40 Mg Tab 40 Mg PO HS 08/21/16 Reported Lopressor (Metoprolol Tartrate) 50 Mg Tab 50 Mg PO BID 08/21/16 Reported TAKES 25 MG IN AM TAKES 50MG IN PM Cozaar (Losartan Potassium) 25 Mg Tab 25 Mg PO QAM 08/21/16 Reported Januvia (Sitagliptin) 50 Mg Tab 50 Mg PO QAM 08/21/16 Reported Glimepiride 2 Mg Tab 2 Mg PO BIDM 08/21/16 Reported Vitamin D3 (Cholecalciferol) 1,000 Unit Cap 1,000 Units PO QPM 08/21/16 Reported Vitamin C (Ascorbic Acid) 1,000 Mg Tab 1,000 Mg PO BID 08/21/16 Reported Niacin 500 Mg Tab 500 Mg PO HS 08/21/16 Reported Rachelle Aspirin Ec Low Dose (Aspirin) 81 Mg Tab 1 Tab PO QAM 08/21/16 Reported Cranberry Extract (Cranberry (Vaccinium Macrocarp) 200 Mg Cap 504 Mg PO BID 08/21/16 Reported Coq-10 (Coenzyme Q10 (Ubidecarenone)) 100 Mg Cap 200 Mg PO QAM 08/21/16 Reported Vital Signs Weight (Kilograms): 113.64 Height (Feet): 6 Height (Inches): 1 Date Time Temp Pulse Resp B/P (MAP) Pulse Ox O2 Delivery O2 Flow Rate FiO2 09/28/16 08:47 37 63 20 126/68 (87) 94 Room Air Physical Exam General Appearance: WD/WN, no apparent distress Respiratory/Chest: Auscultation: breath sounds normal Cardiovascular: Heart Auscultation: RRR Abdomen: Bowel Sounds: normal Inspection & Palpation: soft, non-distended, no tenderness, guarding & rebound Assessment and Plan Assessment: 60 yo CM who presents for EGD secondary to chest pain and GERD. Plan: Proceed with EGD.
--- NOTE | 2016-09-28 09:32 | Discharge Instructions ---
Endoscopy Patient Instructions Date / Procedure(s) Performed Sep 28, 2016. EGD Allergy Information Coded Allergies: Irbesartan (Verified Allergy, Unknown, ? UNSURE, 09/16/16) Latex1 -Allergic Contact Dermititis (Verified Allergy, Unknown, RASH, 09/16) Lisinopril (Verified Allergy, Unknown, RASH, 09/16/16) Olmesartan (Verified Allergy, Unknown, ? REMEMBER, 09/16/16) Discharge Date / Findings Sep 28, 2016. Hiatal hernia Gastric antrum biopsies Distal esophageal biopsies Medication Instructions Stopped Medication(s): stopped all medications except bp and blood sugar OK to resume all medications today as prescribed Reported Home Medications Medications Dose Route/Sig Max Daily Dose Days Date Category Dose Instructions Methenamine Hippurate 1 Gm Tab 1 Tab PO QPM 09/16/16 Reported Probiotic (Probiotic Product) 1 Cap Cap 1 Cap PO QAM 09/16/16 Reported Krill Oil 1 Cap Cap 1 Cap PO QAM 09/16/16 Reported Nexium (Esomeprazole Magnesium) 40 Mg Cap 40 Mg PO QAM 09/16/16 Reported Metformin Hcl Er (Metformin Hcl) 500 Mg Tab 1 Tab PO BID 90 08/21/16 Reported Oxygen Gas 2 Liters NA PRN 08/21/16 Reported Flomax (Tamsulosin Hcl) 0.4 Mg Cap 0.4 Mg PO HS 08/21/16 Reported Pravastatin Sodium (Pravastatin Sod) 40 Mg Tab 40 Mg PO HS 08/21/16 Reported Lopressor (Metoprolol Tartrate) 50 Mg Tab 50 Mg PO BID 08/21/16 Reported TAKES 25 MG IN AM TAKES 50MG IN PM Cozaar (Losartan Potassium) 25 Mg Tab 25 Mg PO QAM 08/21/16 Reported Januvia (Sitagliptin) 50 Mg Tab 50 Mg PO QAM 08/21/16 Reported Glimepiride 2 Mg Tab 2 Mg PO BIDM 08/21/16 Reported Vitamin D3 (Cholecalciferol) 1,000 Unit Cap 1,000 Units PO QPM 08/21/16 Reported Vitamin C (Ascorbic Acid) 1,000 Mg Tab 1,000 Mg PO BID 08/21/16 Reported Niacin 500 Mg Tab 500 Mg PO HS 08/21/16 Reported Rachelle Aspirin Ec Low Dose (Aspirin) 81 Mg Tab 1 Tab PO QAM 08/21/16 Reported Cranberry Extract (Cranberry (Vaccinium Macrocarp) 200 Mg Cap 504 Mg PO BID 08/21/16 Reported Coq-10 (Coenzyme Q10 (Ubidecarenone)) 100 Mg Cap 200 Mg PO QAM 08/21/16 Reported Provider Instructions Activity Restrictions - No exercising or heavy lifting for 24 hours. - Do not drink alcohol the day of the procedure. - Do not drive a car or operate machinery until the day after the procedure. - Do not make any important decisions or sign important papers in 24 hours after the procedure. Following Day: - Return to full activity which may include returning to work/school. Diet Start your diet with liquids and light foods (jello, soup, juice, toast). Then eat your usual diet if not nauseated. Treatment For Common After Affects For mild abdominal pain, bloating, or excessive gas: - Rest - Eat lightly - Lie on right side Follow-Up Information Follow-up with dr. hutchison as scheduled Anesthesia Information What You Should Know You have had a procedure that required some medicine to reduce anxiety and discomfort. This treatment is called moderate sedation. After receiving the treatment, you may be sleepy, but you will be able to breathe on your own. The effects of the treatment may last for several hours. Follow these instructions along with Activity/Diet recommendations noted above: * Do NOT do anything where dizziness or clumsiness would be dangerous. * Rest quietly at home today, then you can be up and about tomorrow. * Have a responsible person stay with you the rest of today. * You may have had an I.V. today. If so, you may take the dressing off later today. Recommendations Call your doctor if: * Trouble breathing * Continuous vomiting for more than 24 hours * Temperature above 101 degrees * Severe abdominal pain or bloating * Pain not relieved by pain medicine ordered * There is increased drainage or redness from any incision * A large amount of rectal bleeding greater than 2-3 tablespoons. (If you had a polyp/s removed or have hemorrhoids, a small amount of blood - from the rectum is to be expected.) * You have any unanswered questions or concerns. IN THE EVENT OF A SERIOUS EMERGENCY, GO TO THE NEAREST EMERGENCY ROOM Your discharge instructions were prepared by provider Gio Azar. Patient Instructions Signature Page [place] Patient (or Guardian) Signature/Date: I have read and understand the instructions given to me by my caregivers. Caregiver/RN/Doctor Signature/Date: The above-named patient and/or guardian has received patient instructions on this date. + Original Patient Signature Page (only) stays with chart. Please make copy for patient.
--- NOTE | 2016-09-28 09:40 | GI REPORT ---
Procedure Date: 09/28/2016 9:20 AM Procedure: Upper GI endoscopy Indications: Unexplained chest pain Medicines: Monitored Anesthesia Care Complications: No immediate complications. Estimated Blood Loss: Estimated blood loss: none. Procedure: Pre-Anesthesia Assessment: - Prior to the procedure, a History and Physical was performed, and patient medications and allergies were reviewed. The patient's tolerance of previous anesthesia was also reviewed. The risks and benefits of the procedure and the sedation options and risks were discussed with the patient. All questions were answered, and informed consent was obtained. Prior Anticoagulants: The patient has taken no previous anticoagulant or antiplatelet agents. ASA Grade Assessment: II - A patient with mild systemic disease. After reviewing the risks and benefits, the patient was deemed in satisfactory condition to undergo the procedure. After obtaining informed consent, the endoscope was passed under direct vision. Throughout the procedure, the patient's blood pressure, pulse, and oxygen saturations were monitored continuously. The scope was introduced through the mouth, and advanced to the second part of duodenum. The upper GI endoscopy was accomplished without difficulty. The patient tolerated the procedure well. Findings: The Z-line was irregular. Biopsies were taken with a cold forceps for histology. A small hiatus hernia was present. Biopsies were taken with a cold forceps in the gastric antrum for Helicobacter pylori testing. The examined duodenum was normal. Impression: - Z-line irregular. Biopsied. - Small hiatus hernia. - Normal examined duodenum. - Biopsies were taken with a cold forceps for Helicobacter pylori testing. Recommendation: - Resume previous diet. - Continue present medications. - Await pathology results. - Return to GI office as previously scheduled. Gio Azar, 09/28/2016 9:39:33 AM This report has been signed electronically. Note Initiated On: 09/28/2016 9:20 AM I attest to the content of the Intraoperative Record and orders documented therein, exceptions below
[2016-09-28 10:05] VITALS: BP 126/85; PULSE 58; O2SAT 94
--- NOTE | 2016-09-28 10:07 | Anesthesiology Progress Note ---
Anesthesia Post Op Note Date & Time Sep 28, 2016 at 10:07 Vital Signs Pain Intensity: 0 Vital Signs Past 12 Hours Date Time Temp Pulse Resp B/P (MAP) Pulse Ox O2 Delivery O2 Flow Rate FiO2 09/28/16 10:05 58 20 126/85 (99) 94 Room Air 09/28/16 09:51 55 20 110/57 (74) 94 Room Air 09/28/16 09:34 61 16 100/58 (72) 93 Room Air 09/28/16 08:47 37 63 20 126/68 (87) 94 Room Air Notes Mental Status: alert / awake / arousable, participated in evaluation Pt Amnestic to Procedure: Yes Nausea / Vomiting: adequately controlled Pain: adequately controlled Airway Patency, RR, SpO2: stable & adequate BP & HR: stable & adequate Hydration State: stable & adequate Anesthetic Complications: no major complications apparent
== END | disposition home or self-care (01) ==
LOC: C.GI 08:18
PROVIDERS: ATTEND Internal Medicine
DX: R07.9 Chest pain, unspecified (principal); K31.89 Other diseases of stomach and duodenum; K44.9 Diaphragmatic hernia without obstruction or gangrene; K21.9 Gastro-esophageal reflux disease without esophagitis; J44.9 Chronic obstructive pulmonary disease, unspecified; I25.2 Old myocardial infarction; I25.10 Atherosclerotic heart disease of native coronary artery without angina pectoris; I10 Essential (primary) hypertension; G47.33 Obstructive sleep apnea (adult) (pediatric); E11.9 Type 2 diabetes mellitus without complications; E78.00 Pure hypercholesterolemia, unspecified; Z90.49 Acquired absence of other specified parts of digestive tract; Z91.040 Latex allergy status; Z79.82 Long term (current) use of aspirin; Z87.891 Personal history of nicotine dependence; Z68.33 Body mass index [BMI] 33.0-33.9, adult; E66.9 Obesity, unspecified

== ENCOUNTER → 2017-01-20 | Outpatient (CLI) | payer BC ==
[~2017-01-20] MED LIST changes: -LIDOCAINE HCL 2% 2 ML VIAL (20MG/ML) ONE; -METH-1305 PO; +METH1TAB5 PO; -PROPOFOL IV EMULSION 10 MG/ML 20 ML VIAL IV ONE; -SODIUM CHLORIDE 0.9% 500ML 500 ML IV ONE
== END | disposition home or self-care (01) ==
LOC: C.LABBFT 08:01
PROVIDERS: ATTEND Urology
DX: Z00.00 Encounter for general adult medical examination without abnormal findings (principal); N40.0 Benign prostatic hyperplasia without lower urinary tract symptoms

== ENCOUNTER → 2017-07-07 | Outpatient (CLI) | payer OTHER ==
[~2017-07-07] MED LIST changes: +METH-1305 PO; -METH1TAB5 PO
== END | disposition home or self-care (01) ==
LOC: C.LAB1850 07:39
PROVIDERS: ATTEND Registered Nurse
DX: R19.5 Other fecal abnormalities (principal)

== ENCOUNTER → 2017-07-13 | Outpatient (CLI) | payer OTHER | END | disposition home or self-care (01) | LOC: C.LABSPEC 17:12 | PROVIDERS: ATTEND Podiatrist Primary Podiatric Medicine | DX: B35.1 Tinea unguium (principal) ==